=== PATIENT | male | born 1990 | race Caucasian/White ===

== ENCOUNTER 2023-08-20 21:28 | Emergency (ER) ==
--- NOTE | 2023-08-20 21:51 | ER ---
Nurse's Notes [facility] Name: Jesus Duran Age: 33 yrs Sex: Male : 1990 Arrival Date: 08/20/2023 Time: 21:28 Bed 4 Private MD: Diagnosis: Anxiety disorder, unspecified Presentation: 08/20 21:33 Chief complaint: EMS states: Pt was playing video games with friends and started to jb4 feel anxious when getting off. Has had anxiety for the past year. self medicates with THC. Coronavirus screen: At this time, the client does not indicate any symptoms associated with coronavirus-19. Ebola Screen: No symptoms or risks identified at this time. Initial Sepsis Screen: Does the patient meet any 2 criteria? No. Patient's initial sepsis screen is negative. Does the patient have a suspected source of infection? No. Patient's initial sepsis screen is negative. Risk Assessment: Do you want to hurt yourself or someone else? Patient reports no desire to harm self or others. Onset of symptoms was August 20, 2023. Transition of care: patient was not received from another setting of care. 21:33 Method Of Arrival: EMS: [facility] jb4 21:33 Acuity: MERI 4 jb4 Historical: - Allergies: 21:35 No Known Allergies; jb4 - Home Meds: 21:35 None [Active]; jb4 - PMHx: 21:35 Anxiety; Heart murmur; jb4 - PSHx: 21:35 None; jb4 - Immunization history:: Adult Immunizations up to date. - Social history:: Smoking status: Reported history of juuling and/or vaping. Patient uses street drugs, marijuana. Screenin:11 [facility] ED Fall Risk Assessment (Adult) History of falling in the last 3 months, jb4 including since admission No falls in past 3 months (0 pts) Confusion or Disorientation No (0 pts) Score/Fall Risk Level 0 - 2 = Low Risk. 22:12 Abuse screen: Denies threats or abuse. Nutritional screening: No deficits noted. jb4 Tuberculosis screening: No symptoms or risk factors identified. Assessment: 22:11 General: Appears in no apparent distress. uncomfortable, Behavior is cooperative, jb4 appropriate for age, anxious. Pain: Denies pain. Neuro: Level of Consciousness is awake, alert, obeys commands, Oriented to person, place, time, situation. Cardiovascular: Patient's skin is warm and dry. Respiratory: Airway is patent Respiratory effort is even, unlabored, Respiratory pattern is regular, symmetrical. GI: No signs and/or symptoms were reported involving the gastrointestinal system. : No signs and/or symptoms were reported regarding the genitourinary system. EENT: No signs and/or symptoms were reported regarding the EENT system. Derm: Skin is intact, Skin is pink, warm \T\ dry. Musculoskeletal: Circulation, motion, and sensation intact. Range of motion:. Vital Signs: 21:33 BP 107 / 68; Pulse 64; Resp 16; Temp 98.8(O); Pulse Ox 100% ; Weight 70.31 kg (R); jb4 Height 5 ft. 10 in. ; 21:33 Body Mass Index 22.24 (70.31 kg, 177.8 cm) jb4 ED Course: 21:31 Patient arrived in ED. rv1 21:31 Avni Leyva MD is Attending Physician. [facility] 21:32 Marlon Glass, JACKI is Primary Nurse. bp 21:35 Triage completed. jb4 21:35 Arm band placed on right wrist. jb4 21:50 Derrick Domingo MD is Referral Physician. [facility] 22:12 Patient has correct armband on for positive identification. Bed in low position. Call jb4 light in reach. Side rails up X 1. Client placed on continuous cardiac and pulse oximetry monitoring. NIBP monitoring applied. 22:12 No provider procedures requiring assistance completed. Patient did not have IV access jb4 during this emergency room visit. Administered Medications: 21:54 Not Given (Patient Refused): ns 0.9% 1000 ml IV at 1 bolus Per protocol; 1000 mL bolus bp 21:54 Not Given (Patient Refused): ativan1 mg IVP once bp Medication: 22:11 VIS not applicable for this client. jb4 Outcome: 21:50 Discharge ordered by . monik 22:12 Discharged to home ambulatory, jb4 22:12 Condition: stable 22:12 Discharge instructions given to patient, Instructed on discharge instructions, follow up and referral plans. medication usage, Demonstrated understanding of instructions, follow-up care, medications, Prescriptions given X 1, 22:13 Patient left the ED. jb4 Signatures: Avni Leyva MD MD cha Bryson, James RN RN jb4 Marlon Glass RN RN Allison Alford 1 Corrections: (The following items were deleted from the chart) 21:36 21:35 Allergies: Aspirin; jb4 jb4
--- NOTE | 2023-08-20 21:51 | EDPHYS ---
Physician Documentation [facility] Name: Jesus Duran Age: 33 yrs Sex: Male : 1990 Arrival Date: 08/20/2023 Time: 21:28 Bed 4 Private MD: ED Physician Avni Leyva HPI: 08/20 21:36 This 33 yrs old Male presents to ER via EMS with complaints of anxiety, sob. monik 21:36 The patient presents to the emergency department with anxiety, over unknown monik circumstances. Onset: The symptoms/episode began/occurred just prior to arrival. Past psychiatric history: Prior diagnosis: anxiety. Associated signs and symptoms: The patient has no apparent associated signs or symptoms. Severity of symptoms: At their worst the symptoms were moderate in the emergency department the symptoms have improved mildly. The patient has experienced similar episodes in the past, several times. Historical: - Allergies: 21:35 No Known Allergies; jb4 - Home Meds: 21:35 None [Active]; jb4 - PMHx: 21:35 Anxiety; Heart murmur; jb4 - PSHx: 21:35 None; jb4 - Immunization history:: Adult Immunizations up to date. - Social history:: Smoking status: Reported history of juuling and/or vaping. Patient uses street drugs, marijuana. ROS: 21:37 Constitutional: Negative for fever, chills, and weight loss, Eyes: Negative for injury, monik pain, redness, and discharge, ENT: Negative for injury, pain, and discharge, Neck: Negative for injury, pain, and swelling, Cardiovascular: Negative for chest pain, palpitations, and edema, Abdomen/GI: Negative for abdominal pain, nausea, vomiting, diarrhea, and constipation, Back: Negative for injury and pain, : Negative for injury, bleeding, discharge, and swelling, MS/Extremity: Negative for injury and deformity, Skin: Negative for injury, rash, and discoloration, Neuro: Negative for headache, weakness, numbness, tingling, and seizure, Allergy/Immunology: Negative for hives, rash, and allergies, Endocrine: Negative for neck swelling, polydipsia, polyuria, polyphagia, and marked weight changes, Hematologic/Lymphatic: Negative for swollen nodes, abnormal bleeding, and unusual bruising, 21:37 Respiratory: Positive for shortness of breath, at rest. 21:37 Psych: Positive for anxiety, Exam: 21:37 Constitutional: This is a well developed, well nourished patient who is awake, alert, monik and in no acute distress. Head/Face: Normocephalic, atraumatic. Eyes: Pupils equal round and reactive to light, extra-ocular motions intact. Lids and lashes normal. Conjunctiva and sclera are non-icteric and not injected. Cornea within normal limits. Periorbital areas with no swelling, redness, or edema. ENT: Nares patent. No nasal discharge, no septal abnormalities noted. Tympanic membranes are normal and external auditory canals are clear. Oropharynx with no redness, swelling, or masses, exudates, or evidence of obstruction, uvula midline. Mucous membranes moist. Neck: Trachea midline, no thyromegaly or masses palpated, and no cervical lymphadenopathy. Supple, full range of motion without nuchal rigidity, or vertebral point tenderness. No Meningismus. Chest/axilla: Normal chest wall appearance and motion. Nontender with no deformity. No lesions are appreciated. Cardiovascular: Regular rate and rhythm with a normal S1 and S2. No gallops, murmurs, or rubs. Normal PMI, no JVD. No pulse deficits. Respiratory: Lungs have equal breath sounds bilaterally, clear to auscultation and percussion. No rales, rhonchi or wheezes noted. No increased work of breathing, no retractions or nasal flaring. Abdomen/GI: Soft, non-tender, with normal bowel sounds. No distension or tympany. No guarding or rebound. No evidence of tenderness throughout. Back: No spinal tenderness. No costovertebral tenderness. Full range of motion. Male : Normal genitalia with no discharge or lesions. Skin: Warm, dry with normal turgor. Normal color with no rashes, no lesions, and no evidence of cellulitis. MS/ Extremity: Pulses equal, no cyanosis. Neurovascular intact. Full, normal range of motion. Neuro: Awake and alert, GCS 15, oriented to person, place, time, and situation. Cranial nerves II-XII grossly intact. Motor strength 5/5 in all extremities. Sensory grossly intact. Cerebellar exam normal. Normal gait. Psych: Awake, alert, with orientation to person, place and time. Behavior, mood, and affect are within normal limits. 21:37 ECG was reviewed by the Attending Physician. 21:50 ECG was reviewed by the Attending Physician. [facility] Vital Signs: 21:33 BP 107 / 68; Pulse 64; Resp 16; Temp 98.8(O); Pulse Ox 100% ; Weight 70.31 kg (R); jb4 Height 5 ft. 10 in. ; 21:33 Body Mass Index 22.24 (70.31 kg, 177.8 cm) jb4 MDM: 21:31 Patient medically screened. monik 21:38 Differential diagnosis: drug withdrawal. acute psychotic break, depression, psychosis monik secondary to non-compliance. Data reviewed: vital signs, nurses notes, lab test result(s), EKG. Consideration of Admission/Observation Escalation of care including admission/observation considered. I considered the following discharge prescriptions or medication management in the emergency department Medications were administered in the Emergency Department. See MAR. Independent interpretation of the following test(s) in the Emergency Department EKG: See my EKG interpretation above. Test considered but Not performed: X-ray: no cxr needed. Care significantly affected by the following chronic conditions: anxiety, murmur. 21:51 Counseling: I had a detailed discussion with the patient and/or guardian regarding the monik historical points, exam findings, and any diagnostic results supporting the discharge/admit diagnosis, the need for outpatient follow up, for definitive care, a family practitioner, a psychiatrist. 21:52 ED course: pt wants no labs, no test , dw patient importance of labs and suggested monik test, pt refuses. 08/20 21:33 Order name: EKG; Complete Time: 21:34 [facility] 08/20 21:33 Order name: EKG - Nurse/Tech; Complete Time: 21:54 [facility] EC:50 Rate is 92 beats/min. Rhythm is regular. QRS [place] is Normal. SC interval is normal. QRS monik interval is normal. QT interval is normal. No Q waves. T waves are Normal. No ST changes noted. Clinical impression: NSR w/ Non-specific ST/T Changes and No evidence of ischemia. Interpreted by me. Reviewed by me. Administered Medications: 21:54 Not Given (Patient Refused): ns 0.9% 1000 ml IV at 1 bolus Per protocol; 1000 mL bolus bp 21:54 Not Given (Patient Refused): ativan1 mg IVP once bp Disposition Summary: 08/20/23 21:50 Discharge Ordered Notes: Location: Home monik Problem: new monik Symptoms: have improved monik Condition: Stable monik Diagnosis - Anxiety disorder, unspecified monik Followup: monik - With: Private Physician - When: 2 - 3 days - Reason: Recheck today's complaints, Re-evaluation by your physician Followup: monik - With: Derrick Domingo MD - When: 2 - 3 days - Reason: Recheck today's complaints, Re-evaluation by your physician Discharge Instructions: - Discharge Summary Sheet monik - Panic Attack monik - Steps to Quit Smoking monik - Steps to Quit Smoking, [id number] monik - Panic Attack, [id number] monik - Supporting Someone With Anxiety monik - Managing Anxiety, Adult monik Forms: - Medication Reconciliation Form [facility] - Thank You Letter [facility] - Antibiotic Education monik - Prescription Opioid Use monik - Patient Portal Instructions monik - Leadership Thank You Letter [facility] Prescriptions: - Hydroxyzine HCl 25 mg Oral Tablet - take 1 tablet ORAL route every 6 hours As needed; 30 tablet; Refills: 0, monik Product Selection Permitted Signatures: Dispatcher [employer] EDAvni Aranda MD MD cha Bryson, James, RN RN jb4 Marlon Glass RN bp Corrections: (The following items were deleted from the chart) 21:33 21:33 Suicide Screening ([place]) ordered. [facility] jb4 21:36 21:35 Allergies: Aspirin; jb4 jb4 21:51 21:37 Rate is 60 beats/min. Rhythm is regular. QRS [place] is Normal. SC interval is monik normal. QRS interval is normal. QT interval is normal. No Q waves. T waves are Normal. No ST changes noted. Clinical impression: NSR w/ Non-specific ST/T Changes and No evidence of ischemia. Interpreted by me. Reviewed by me. monik 21:54 21:33 IV Saline Lock ordered. monik bp 21:54 21:33 Labs collected and sent ordered. [facility] bp
--- NOTE | 2023-08-21 11:40 | EKG ---
Test Date: 2023-08-20 Test Time: 21:48:18 [employer] Supervisor: BP MEASUREMENT RESULTS: Intervals: Rate: 92 AL: 146 QRSD: 88 QT: 342 QTc: 422 [place]: P: 65 AL: 146 QRS: 73 T: 55 INTERPRETIVE STATEMENTS: Normal sinus rhythm with sinus arrhythmia Possible Left atrial enlargement Borderline ECG Compared to ECG 08/20/2023 21:47:42 Sinus tachycardia no longer present Right-axis deviation no longer present Electronically Signed On 08-21-23 11:38:56 CDT by Darren Pfeiffer
--- NOTE | 2023-08-21 11:40 | EKG ---
Test Date: 2023-08-20 Test Time: 21:47:42 Orthotic Technician: BP MEASUREMENT RESULTS: Intervals: Rate: 102 [place]: 142 QRSD: 90 QT: 326 QTc: 424 [place]: P: 69 [place]: 142 QRS: 90 T: 51 INTERPRETIVE STATEMENTS: Sinus tachycardia Possible Left atrial enlargement Rightward axis Borderline ECG No previous ECG available for comparison Electronically Signed On 08-21-23 11:38:58 CDT by Darren Pfeiffer
== END 2023-08-20 22:13 | disposition home or self-care (01) ==
LOC: ER 21:28
DX: F41.9 Anxiety disorder, unspecified (principal)
CPT/HCPCS: 93005; 99283

== ENCOUNTER 2023-09-17 13:47 | Emergency (ER) | payer BC ==
[2023-09-17] MEDS ORDERED: TDAP (DIPHTH,PERTUSS(ACELL),TET VAC) 0.5 ML VIAL IMVAC ONE (15:00)
--- NOTE | 2023-09-17 15:27 | RAD REPORT ---
EXAM DESCRIPTION: CT - [id number] - 09/17/2023 2:07 pm CLINICAL HISTORY: TRAUMA COMPARISON: No comparisons TECHNIQUE: Axial thin cut noncontrast CT images of the head were obtained. Axial thin cut noncontrast CT images of the cervical spine were obtained. Multiplanar reformatted images were generated and reviewed. All CT scans are performed using dose optimization technique as appropriate and may include automated exposure control or mA/KV adjustment according to patient size. FINDINGS: CT HEAD WITHOUT CONTRAST: No acute hemorrhage, hydrocephalus or extra-axial collection is identified.No areas of brain edema or midline shift. The paranasal sinuses show mild bilateral maxillary sinus, right more than left the ethmoidal air syeda ls, and right sphenoid sinus mucosal thickening. Trace air-fluid level on the left maxillary sinus. M ildly buckled fractures along the lateral left maxillary sinus and orbital nazario. Overlying lateral p eriorbital soft tissue swelling.The calvarium is intact. CT CERVICAL SPINE WITHOUT CONTRAST: No fracture or subluxation.No prevertebral soft tissues swelling is identified. IMPRESSION: No acute traumatic intracranial or cervical spine findings. Mildly buckled fractures along the lateral left maxillary sinus and orbital nazario. Overlying lateral periorbital soft tissue swelling.
--- NOTE | 2023-09-17 16:22 | RAD REPORT ---
EXAM DESCRIPTION: James Single View09/17/2023 2:24 pm CLINICAL HISTORY: TRAUMA COMPARISON: None available TECHNIQUE: Portable AP view of the chest. FINDINGS: The lungs are clear. No pneumothorax or effusion. The cardiomediastinal contours are unre markable. IMPRESSION: No acute cardiopulmonary process.
[2023-09-17] MEDS ORDERED: LIDOCAINE 1% MPF 5 ML VIAL ONE (16:23)
--- NOTE | 2023-09-17 16:23 | RAD REPORT ---
EXAM DESCRIPTION: RAD - Wrist Left 3 View - 09/17/2023 2:22 pm CLINICAL HISTORY: PAIN COMPARISON: No comparisons TECHNIQUE: Left wrist, 3 views. FINDINGS: No acute fracture. There is no dislocation or periosteal reaction noted. No suspicious bon y finding. No foreign body or other soft tissue abnormality. IMPRESSION: Negative left wrist examination.
--- NOTE | 2023-09-17 16:23 | RAD REPORT ---
EXAM DESCRIPTION: RAD - Shoulder Left 2 View - 09/17/2023 2:21 pm CLINICAL HISTORY: PAIN COMPARISON: No comparisons TECHNIQUE: Internal and external rotation views of the left shoulder were obtained. FINDINGS: There is no fracture or dislocation. AC joint is normal in appearance. No acute or suspici ous findings. IMPRESSION: Negative two-view left shoulder examination.
[2023-09-17] MEDS ORDERED: MUPIROCIN 2% OINT 22GM TUBE TOP ONE (16:48)
--- NOTE | 2023-09-17 17:25 | RAD REPORT ---
EXAM DESCRIPTION: CT - CTFB CLINICAL HISTORY: TRAUMA COMPARISON: No comparisons TECHNIQUE: Axial thin cut noncontrast CT images of the face were obtained with sagittal and coronal reconstruction images. All CT scans are performed using dose optimization technique as appropriate and may include automated exposure control or mA/KV adjustment according to patient size. FINDINGS: Mild diastasis across the left temporo zygomatic suture with mild overlying soft tissue sw elling. Soft tissue swelling also noted along the lateral left orbital margin. Buckling along the lat eral maxillary sinus and orbital nazario. No other acute facial bone fracture is seen.The mandible is i ntact. The globes and orbital contents are grossly unremarkable.The paranasal sinuses show scattered up to m oderate paranasal sinus mucosal thickening with aerated secretions in the left maxillary sinus. IMPRESSION: Buckling along the left lateral maxillary sinus and orbital nazario. Mild diastasis across the left temporo zygomatic suture. Findings may relate to acute trauma, although given the stomach r emodeled appearance, sequelae of remote trauma may also be considered. Soft tissue swelling as above.
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
[2023-09-17 18:33] VITALS: TEMP 98.2; O2SAT 100
[2023-09-17 18:35] VITALS: BP 132/87
== END 2023-09-17 18:06 | disposition home or self-care (01) ==
LOC: ER 13:47
PROC: 0HQ1XZZ Repair Face Skin, External Approach (ICD-10-PCS; principal; 2023-09-17)
DX: S05.32XA Ocular laceration without prolapse or loss of intraocular tissue, left eye, initial encounter (principal); S02.40DA Maxillary fracture, left side, initial encounter for closed fracture; Z88.6 Allergy status to analgesic agent
CPT/HCPCS: 70450; 72125; 70486; 76377; 71045; 73030; 73110; 96372; 99284; 12011; J2001

== ENCOUNTER 2023-09-23 12:07 | Emergency (ER) | payer BC ==
--- OUTSIDE RECORDS SUMMARY | 2023-09-23 12:09 | XMS REPORT | Continuity of Care Document ---
:1990 Author Organization [facility] t Address [address] [place] [address] Care Team Providers Name Role Phone Mckeon Kaye THAYER Primary Care Physician TOMAS ROSSI Attending Clinician Unavailable Tomas Rossi MD Attending Clinician Pob, [facility] Main Attending Clinician Unavailable Doctor Unassigned, [place] Attending Clinician Unavailable Payers Payer Name Policy Type Policy Number Effective Date Expiration Date S adam [facility] [id number] 2020 00:00:00 Problems This patient has no known problems. Allergies, Adverse Reactions, Alerts Allergy Allergy Status Severity Reaction(s) Onset Inactive Treating Comm ents Source Name Type Date Date Clinician NO KNOWN Drug Active Univers ALLERGIE Class ity of S [facility] Social History Social Habit Start Date Stop Date Quantity Comments Source Sex Assigned At [birth year] [facility] 00:00:00 00:00:[address] [facility] Smoking Status Start Date Stop Date Source Unknown if ever smoked [facility] Medications Ordered Filled Start Stop Current Ordering Indication Dosage Frequency Signature Comments Components Source Medication Medication Date Date Medication? Clinician (SIG) Name Name iopamidol 2021- No [id number] 70mL 70 mL, U nivers (ISOVUE 05-03 Intravenou ity o f 370-500 mL) 21:08: 21:10 s, ONCE, 1 [place] injection 00 :00 dose, On Medica l 70 mL Wed Branch 05/03/22 at 1630, Routine Procedures Procedure Date / Time Performing Clinician Source Performed CT ABDOMEN PELVIS W 2022-05-03 21:16:00 Requisition, [facility] CONTRAST [facility] HB CREATININE BLOOD 2022-05-03 21:03:00 Tomas Rossi [facility] PATIENT FINANCIAL 2022-05-03 20:17:50 [facility] NO SHOW OR MISSED 2022-05-03 20:17:33 Doctor Sammy, [facility] APPOINTMENT POLICY [place] [facility] ACKNOWLEDGEMENT NOTICE OF PRIVACY 2022-05-03 20:17:15 Doctor Sammy, [facility] PRACTICES [facility] [place] [facility] CONSENT/REFUSAL FOR 2022-05-03 20:16:56 [facility] DIAGNOSIS AND TREATMENT [facility] [place] [facility] ASSIGNMENT OF BENEFITS 2022-05-03 20:16:38 Doctor Sammy, [facility] [place] [facility] [place] Encounters Start End Encounter Admission Attending Care Care Encounter Source Date/Time Date/Time Type Type Clinicians Facility Department ID 2022-05-03 2022-05-03 [facility] [id number] [facility] 15:41:08 23:59:00 TOMAS baeza [facility] 2022-05-03 2022-05-03 Hospital [facility] [id number] Univers 15:41:08 23:59:00 Encounter Tomas HILL [id number] ity [facility] [id number] [facility] [id number] [place] [address] Branch 2022-05-03 2022-05-03 Forming Roll Operator Brenna, [facility] Main [facility] [id number] Univers 15:15:00 15:30:00 Visit FloTomas LIZ [id number] ity [facility] [id number] [place] [address] [phone] Tn dical [facility] [address] BUILDING 2022-05-03 2022-05-03 Orders Doctor FLETCHER [id number] Univers 00:00:00 00:00:00 Only UnassTATI hudson [id number] ity of [place] [facility] [id number] Curtis as [phone] [address] Results Test Description Test Time Test Comments Results Result Comments Source POCT CREATININE 2022-05-03 21:40:34 Test Item Value Reference Range Interpretation Comme nts POCT Creatinine (test code = [id number]) 1.0 mg/dL 0.6-1.3 Lab Interpretation (test code = 45361-8) [facility]
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
--- NOTE | 2023-09-23 12:22 | ER ---
Nurse's Notes [facility] Name: Jesus Duran Age: 33 yrs Sex: Male : 1990 Arrival Date: 09/23/2023 Time: 12:07 Bed IW1 Private MD: Diagnosis: Encounter for removal of sutures Presentation: 09/23 12:16 Chief complaint: Patient states: Here to have sutures removed. 2 sutures noted to L brow area that were placed 6 days ago. Coronavirus screen: Client denies travel out of the [place] in the last 14 days. Ebola Screen: Patient denies exposure to infectious person. Patient denies travel to an Ebola-affected area in the 21 days before illness onset. Initial Sepsis Screen: Does the patient meet any 2 criteria? No. Patient's initial sepsis screen is negative. Does the patient have a suspected source of infection? No. Patient's initial sepsis screen is negative. Risk Assessment: Do you want to hurt yourself or someone else? Patient reports no desire to harm self or others. Onset of symptoms was September 17, 2023. 12:16 Method Of Arrival: Ambulatory ss 12:16 Acuity: MERI 5 ss Historical: - Allergies: 12:16 NSAIDS; ss 12:16 Tylenol; ss - PMHx: 12:16 Anxiety; Heart Murmur; ss Screenin:26 [facility] ED Fall Risk Assessment (Adult) History of falling in the last 3 months, ss including since admission No falls in past 3 months (0 pts). Abuse screen: Denies threats or abuse. Denies injuries from another. Nutritional screening: No deficits noted. Tuberculosis screening: Never had TB. Assessment: 12:26 General: Appears in no apparent distress. comfortable. Neuro: Level of Consciousness is ss awake, alert, obeys commands. Cardiovascular: Capillary refill < 3 seconds is brisk in bilateral fingers. Respiratory: Airway is patent Respiratory effort is even, unlabored, Respiratory pattern is regular, symmetrical. Derm: Skin is pink, warm \T\ dry. normal. Vital Signs: 12:15 Pulse 85; Resp 16; Temp 98; Pulse Ox 99% ; Pain 1/10; ss 12:15 Pain Scale: Adult ss ED Course: 12:09 Patient arrived in ED. im 12:10 Roberto Granado MD is Attending Physician. ec2 12:15 Arm band placed on right wrist. ss 12:16 Triage completed. ss 12:26 Patient has correct armband on for positive identification. ss 12:26 No provider procedures requiring assistance completed. Patient did not have IV access ss during this emergency room visit. Administered Medications: No medications were administered Medication: 12: VIS not applicable for this client. ss Outcome: 12: Discharge ordered by MD. ec2 12: Discharged to home ambulatory, ss 12: Condition: good 12: Discharge instructions given to patient, Instructed on discharge instructions, follow up and referral plans. Demonstrated understanding of instructions, follow-up care, 12:28 Patient left the ED. ss Signatures: Belle Jauregui RN RN Mayda Encinas Edwin, MD MD ec2
[2023-09-23 12:48] VITALS: TEMP 98; O2SAT 99
== END 2023-09-23 12:28 | disposition home or self-care (01) ==
LOC: ER 12:07
DX: Z48.02 Encounter for removal of sutures (principal)
CPT/HCPCS: 99282